=== PATIENT | female | born 1970 | race Two or more races ===

== ENCOUNTER 2022-02-12 09:37 | Emergency (ER) | payer OTHER ==
[~2022-02-12] VITALS: Ht 167.6 cm; Wt 78.9 kg
[2022-02-12] MEDS ORDERED: COZAAR25 MG PO (09:55)
== END 2022-02-12 12:10 | disposition home or self-care (01) ==
LOC: ER 09:37
DX: M54.42 Lumbago with sciatica, left side (principal); Z88.2 Allergy status to sulfonamides